=== PATIENT | female | born 2000 | race African-American/Black ===

== ENCOUNTER 2025-05-03 22:32 | Emergency (ER) | payer SELFPAY ==
[~2025-05-03] VITALS: Ht 154.9 cm; Wt 96.6 kg
[2025-05-04] MEDS ORDERED: HYDR-500 PO (01:00)
[2025-05-04 02:11] VITALS: BP 132/80; TEMP 98.2; O2SAT 100
== END 2025-05-04 02:11 | disposition home or self-care (01) ==
LOC: ER 22:34
DX: R06.02 Shortness of breath (principal); M79.602 Pain in left arm; F41.9 Anxiety disorder, unspecified; J45.909 Unspecified asthma, uncomplicated; Z20.822 Contact with and (suspected) exposure to COVID-19
CPT/HCPCS: 71045-TC

== ENCOUNTER 2025-06-12 19:31 | Emergency (ER) | payer BC ==
[~2025-06-12] VITALS: Ht 152.4 cm; Wt 95.7 kg
[~2025-06-12 19:31] MED LIST: HYDR-500 PO
--- NOTE | 2025-06-12 19:40 | NUR ---
BIBSELF C/O DIZZINESS STARTED THUR
[2025-06-12] MEDS ORDERED: MECLIZINE HCL 25 MG TABLET ONE (20:26)
--- NOTE | 2025-06-12 20:30 | NUR ---
urine sample handed it over to phleb
[2025-06-12] MEDS: MECLIZINE HCL 25 MG TABLET PO ONE (20:32)
--- NOTE | 2025-06-12 20:33 | NUR ---
medicated pt as ordered by
[2025-06-12 20:50] LABS: APPEARANCE,URINE CLEAR (CLEAR); BLOOD, URINE 1+ Ery/uL (NEGATIVE); LEUKOCYTE ESTERASE ,URINE 2+ (NEGATIVE); NITRITE, URINE NEGATIVE (NEGATIVE); UGLUCOSE NEGATIVE (NEGATIVE)
[2025-06-12 20:51] LABS: PLATELET COUNT (AUTO) 374 K/uL (150-450); RED BLOOD CELL COUNT(AUTO) 5.36 MIL/uL (4.0-5.2); RED CELL DISTRIBUTION WIDTH 14.7 % (11.5-15.0); WHITE BLOOD COUNT (AUTO) 9.8 K/uL (4.3-11.0)
[2025-06-12 20:57] LABS: CALCIUM, SERUM 9.2 mg/dL (8.5-10.1); CREATININE 1.1 mg/dL (0.6-1.3); SODIUM SERUM 139.0 mmol/L (136-145); UREA NITROGEN, BLOOD 9.0 mg/dL (7-18)
[2025-06-12] MEDS ORDERED: MECL-159 PO (21:04)
[2025-06-12 21:10] LABS: ADD URINE CULTURE YES; SQUAMOUS EPITHELIAL CELL,UR Moderate /HPF (None Seen)
--- NOTE | 2025-06-12 21:11 | NUR ---
Patient discharged to home in stable condition. Written and verbal after care instructions given. Patient verbalizes understanding of instruction.
[2025-06-12 21:12] VITALS: BP 120/90; TEMP 98.1; O2SAT 97
== END 2025-06-12 21:12 | disposition home or self-care (01) ==
LOC: ER 19:35
DX: R42 Dizziness and giddiness (principal); J45.909 Unspecified asthma, uncomplicated
CPT/HCPCS: 99283; 85025; 80048; 81001; 36415; J8597; 87086-TC